=== PATIENT | female | born 1945 | race Hispanic/Latino ===

== ENCOUNTER → 2018-02-24 | Outpatient (CLI) | payer MEDICARE ==
[~2018-02-24] MED LIST: ASPIRIN81 MG PO; CHOLESTEROL MEDICATION; VASOTEC10 MG PO
--- NOTE | 2018-02-24 17:46 | Diagnostic Imaging Report ---
Exam: Finger 3 views History: Pain, contusion Comparison: None. Findings: No fracture or malalignment. Degenerative arthrosis of the first carpometacarpal, metacarpophalangeal, and interphalangeal joint of the thumb. No abnormal soft tissue calcification or soft tissue defect. Impression: No acute osseous abnormality Signed by: Dr. Michael Byrd M.D. on 02/24/2018 5:43 PM
== END ==
LOC: RAD 16:26
PROVIDERS: ATTEND Family Medicine
DX: S60.011A Contusion of right thumb without damage to nail, initial encounter (principal)

== ENCOUNTER → 2018-04-24 | Outpatient (CLI) | payer MEDICARE ==
--- NOTE | 2018-04-24 16:12 | Diagnostic Imaging Report ---
EXAM: Soft tissue non-vascular ultrasound - Left knee COMPARISON: None. TECHNIQUE: Limited ultrasound of the soft tissues of the anterior and posterior knee was performed at the area of clinical concern. FINDINGS: In the area of a soft tissue nodule in the left anterior knee, there is a 1.3 x 0.5 x 0.9 cm hypoechoic area with surrounding doppler flow, superficial to the tibial cortex. In the area of clinical concern, there is soft tissue edema and hyperemia in the posterior knee soft tissues. No discrete Cornejo's cyst is visualized. IMPRESSION: Soft tissue nodule in the left anterior knee corresponding to 1.3 cm hypoechoic area on ultrasound with surrounding vascularity. No discrete fluid collection. This is indeterminate by ultrasound. Given the presence of pain x 8 days, this could represent an inflammatory or infectious process. The appearance is not typical for a lymph node. A follow-up ultrasound is suggested to assess for resolution. Edema and hyperemia in the soft tissues of the posterior knee without evidence of Cornejo's cyst. Signed by: Dr. Edouard Aiken MD on 04/24/2018 4:09 PM
--- NOTE | 2018-04-24 16:29 | Diagnostic Imaging Report ---
Exam: Left knee radiographs, 3 views. Comparison: None. Findings: No evidence of acute fracture or malalignment. There are moderate medial compartment predominant tricompartmental degenerative changes with joint space narrowing and bony osteophyte formation. No evidence of joint effusion. There is quadriceps enthesopathy. 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 No acute osseous abnormality. Signed by: Dr. Edouard Aiken MD on 04/24/2018 4:25 PM
== END ==
LOC: US 15:10
PROVIDERS: ATTEND Family Medicine
DX: M25.562 Pain in left knee (principal)
CPT/HCPCS: 76882

== ENCOUNTER → 2018-05-08 | Outpatient (CLI) | payer MEDICARE ==
--- NOTE | 2018-05-08 14:48 | Diagnostic Imaging Report ---
TECHNIQUE: Magnetic resonance imaging of the LEFT KNEE was performed WITHOUT injected contrast. HISTORY: Left knee pain COMPARISON: None available. FINDINGS: LIGAMENTS AND TENDONS: ACL: Mucoid degeneration. No tear. PCL: Intact Collateral ligaments: Intact Iliotibial band: Unremarkable Popliteal tendon: Intact Extensor mechanism: Intact JOINT: Menisci: Medial: Complex tearing of the body and posterior horn with a dominant radial component to the posterior horn root junction. Meniscal extrusion. Lateral: Intact without tear Articular Cartilage: Medial Compartment: Diffuse high-grade cartilage loss Lateral Compartment: Diffuse low grade cartilage loss Patellofemoral Compartment: Diffuse high-grade cartilage loss Joint Fluid: Moderate joint effusion. BONE: No focal or infiltrative bone marrow replacing abnormality. No acute fracture. SOFT TISSUES: Otherwise, unremarkable. IMPRESSION: Medial meniscus complex tearing with dominant radial component to the posterior horn root junction results in extrusion, high-grade cartilage loss, and subchondral edema at the medial joint line. Signed by: Dr. Michael Byrd M.D. on 05/08/2018 2:45 PM
== END ==
LOC: MRI 13:36
PROVIDERS: ATTEND Family Medicine
DX: M25.562 Pain in left knee (principal)

== ENCOUNTER → 2018-06-25 | Outpatient (CLI) | payer MEDICARE ==
[~2018-06-25] MED LIST changes: +CENTRUM SILVER1 EAC3; +ROSUVASTATIN PO
--- NOTE | 2018-06-25 11:08 | Diagnostic Imaging Report ---
EXAMINATION: PA and lateral views of the chest. COMPARISON: 06/08/2018 CLINICAL HISTORY: Pneumonia follow-up DISCUSSION: Lung volumes remain low. No appreciable interval change in multifocal consolidations involving the right middle lobe and left midlung. No new consolidation or pleural effusion. Stable cardiomediastinal contour. No acute osseous abnormality. Right upper quadrant surgical clips. IMPRESSION: No interval radiographic change in multifocal pneumonia. A follow-up chest radiograph in 6 weeks is suggested, at which point radiographic resolution would be expected. Signed by: Dr. Noah Brumfield M.D. on 06/25/2018 11:04 AM
== END ==
LOC: RAD 10:17
PROVIDERS: ATTEND Family Medicine
DX: Z09 Encounter for follow-up examination after completed treatment for conditions other than malignant neoplasm (principal); J18.9 Pneumonia, unspecified organism
CPT/HCPCS: 71046

== ENCOUNTER → 2018-08-17 | Outpatient (CLI) | payer MEDICARE ==
--- NOTE | 2018-08-17 09:49 | Diagnostic Imaging Report ---
EXAMINATION: CHEST 2 VIEWS INDICATION: Follow-up pneumonia. COMPARISON: Chest radiograph 06/25/2017. FINDINGS: TUBES and LINES: None. LUNGS: Lungs are not well inflated. Persistent consolidative opacity within the right middle lobe. Improving patchy left lower lung opacity. There is linear subsegmental atelectasis in the left upper lung. PLEURA: No pleural effusion or pneumothorax. HEART AND MEDIASTINUM: The cardiomediastinal silhouette is unremarkable. BONES AND SOFT TISSUES: No acute osseous abnormality. UPPER ABDOMEN: No free air under the diaphragm. Status post cholecystectomy. IMPRESSION: Persistent consolidation in the right middle lobe. Given similar appearance to radiograph on 06/08/2018, a chest CT is suggested for further evaluation. Improving opacity in the left lower lung, which may reflect resolving pneumonia. Signed by: Dr. Edouard Aiken MD on 08/17/2018 9:45 AM
== END ==
LOC: RAD 09:11
PROVIDERS: ATTEND Family Medicine
DX: Z09 Encounter for follow-up examination after completed treatment for conditions other than malignant neoplasm (principal); J18.9 Pneumonia, unspecified organism
CPT/HCPCS: 71046

== ENCOUNTER → 2018-08-24 | Outpatient (CLI) | payer MEDICARE ==
[~2018-08-24] MED LIST changes: +IOPAMIDOL 370 MG/ML 200 ML INFUS..BTL INJ ONE; +SODIUM CHLORIDE 0.9% 50ML 50 ML ONE
[2018-08-24 12:40] LABS: BLOOD UREA NITROGEN 13 mg/dL (7-26); BUN/CREATININE RATIO 19 (6-25); CREATININE, SERUM 0.67 mg/dL (0.57-1.11); EST GLOMERULAR FILTRATION RATE > 60 ML/MIN (60-)
--- NOTE | 2018-08-24 15:46 | Diagnostic Imaging Report ---
EXAM: CT Chest WITH contrast INDICATION: Abnormal chest radiograph, history of pneumonia. COMPARISON: None TECHNIQUE: Chest was scanned utilizing a multidetector helical scanner from the lung apex through the level of the adrenal glands after administration of IV contrast. Coronal and sagittal reformations were obtained. Routine protocol was performed. IV CONTRAST: 100 mL of Isovue-370. RADIATION DOSE: Total DLP: 473.2 mGy*cm Estimated effective dose: (DLP x 0.014 x size factor) mSv COMPLICATIONS: None FINDINGS: LINES/ TUBES: None. LUNGS AND AIRWAYS: The central airways are patent. There is consolidative opacity within the right middle lobe. There is linear opacity within the left upper lobe adjacent to calcified left peribronchial lymph nodes. Linear atelectasis versus scarring within the lingula. Mild patchy consolidative opacity within the dependent left upper lobe along the major fissure. There is multifocal groundglass opacity involving the bilateral lower lobes and left greater than right upper lobes. Diffuse opacity limits evaluation for pulmonary nodule. There is a 4 mm subpleural nodular opacity in the right upper lobe on series 3, image 17 and 2 mm subpleural nodule in the left upper lobe on image 16. There is a 4 mm ground glass nodule within the right upper lobe on image 41. PLEURA: The pleural spaces are clear. HEART AND MEDIASTINUM: Heterogeneous thyroid with likely nodule, measuring up to 1.7 cm in the left thyroid lobe. There are enlarged and calcified bilateral mediastinal and hilar lymph nodes. For for example, a right paratracheal calcified lymph node, measuring up to 1.2 cm short axis on series 2, image 37, right peribronchial lymph node, measuring up to 1.5 cm on image 42, and left upper peribronchial lymph node, measuring up to 1.1 cm. Calcified bilateral hilar lymph nodes result in mild extrinsic compression of the bilateral lower lobar pulmonary arteries. Mild cardiomegaly. No pericardial effusion. There is coronary atherosclerosis. Scattered atherosclerotic calcifications within the thoracic aorta and branch vessels. Tortuous great vessels. UPPER ABDOMEN: Limited contrast-enhanced views of the upper abdomen. Status post cholecystectomy. Diffuse mild fatty liver. Small hiatal hernia. BONES/SOFT TISSUES: No acute osseous abnormality. No suspicious lytic or blastic lesions. IMPRESSION: Consolidation within the right middle lobe, consistent with pneumonia. Multifocal groundglass opacities, likely infectious or inflammatory. Suggest follow-up chest CT in 3 months to assess for resolution. Bilateral mediastinal and hilar calcified lymphadenopathy with scarring within the left upper lobe, likely reflecting sequela of prior granulomatous disease. Bilateral solid and groundglass pulmonary nodules as above, measuring up to 4 mm. These can be further assessed on follow-up chest CT. Signed by: Dr. Edouard Aiken MD on 08/24/2018 3:42 PM
== END ==
LOC: CT 11:39
PROVIDERS: ATTEND Family Medicine
DX: R91.8 Other nonspecific abnormal finding of lung field (principal); J18.9 Pneumonia, unspecified organism
CPT/HCPCS: 36415; 71260; 82565; 84520; Q9967

== ENCOUNTER → 2018-09-08 | Day surgery (SDC) | payer MEDICARE ==
[2018-09-03 10:00] LABS: BASOPHILS # (AUTO) 0.1 (0.0-0.1); BASOPHILS % 0.9 % (0.0-1.0); EOSINOPHILS # (AUTO) 0.2 (0.0-0.4); EOSINOPHILS % 3.1 % (0.0-6.0); HEMATOCRIT 39.1 % (34.2-44.1); HEMOGLOBIN 12.8 g/dL (12.0-16.0); LYMPHOCYTES # (AUTO) 1.6 (1.0-3.2); LYMPHOCYTES % 29.4 % (18.0-39.1); MEAN CORPUSCULAR HEMOGLOBIN 29.8 pg (28-32); MEAN CORPUSCULAR HGB CONC 32.7 g/dL (31-35); MEAN CORPUSCULAR VOLUME 91.1 fL (81-99); MONOCYTES # (AUTO) 0.4 (0.2-0.8); MONOCYTES % 7.6 % (4.4-11.3); NEUTROPHILS # (AUTO) 3.2 (2.1-6.9); NEUTROPHILS % 58.5 % (38.7-80.0); PLATELET COUNT 265 x10e3/uL (140-360); RED BLOOD COUNT 4.29 x10e6/uL (3.6-5.1); RED CELL DISTRIBUTION WIDTH 13.4 % (11.7-14.4)
[~2018-09-08] MED LIST changes: +ACETAMINOPHEN 1000 MG/100 ML 100 ML IV ONE; +BUPIVACAINE 0.5%/EPI 30 ML SDV INJ ONE; +CLINDAMYCIN PHOS 900MG/ 50ML 50 ML IV ONE; +DEXAMETHASONE SOD PHOS INJ 4 MG/ML VIAL ONE; +FENTANYL CITRATE/PF 100MCG/2 ML INJ ONE; -IOPAMIDOL 370 MG/ML 200 ML INFUS..BTL INJ ONE; +LIDOCAINE HCL 2% LOCAL INJ 5 ML SDV VIAL INJ ONE; +MIDAZOLAM HCL 2 MG/2 ML VIAL ONE; +MORPHINE SULFATE INJ 4 MG/ML INJ 1ML ONE; +ONDANSETRON HCL INJ 2MG/ML 2ML 2 MG/ML VIAL ONE; +PROPOFOL IV EMULSION 10 MG/ML 20 ML VIAL ONE; +SEVOFLURANE INHAL SOLN 250 ML PEN BTL ONE; -SODIUM CHLORIDE 0.9% 50ML 50 ML ONE
--- OUTSIDE RECORDS SUMMARY | 2018-09-08 10:43 | XMS REPORT | Summary of Care ---
Author Organization Unknown Address Unknown Phone Unavailable Encounter [facility] Encntr_yodit(LV) [id number] Date(s): 10/25/13 - 10/25/13 [facility] - [address] [address] [place] Discharge Disposition: Home Physician Attending: Ney Nowak MD Reason for Visit 786.05 - SHORTNESS OF BR Problem List No data available for this section Allergies, Adverse Reactions, Alerts No data available for this section Medications No data available for this section Medications Administered During Your Visit No data available for this section Immunizations No data available for this section
--- OUTSIDE RECORDS SUMMARY | 2018-09-08 10:43 | XMS REPORT | Summary of Care ---
Author Organization Unknown Address Unknown Phone Unavailable Encounter [facility] En[facility]tr[facility]yodit(LV) [id number] Date(s): 11/15/13 - 11/15/13 [facility] Out[facility] - [address] [address] [place] Discharge Disposition: Home Physician Attending: Malcolm Quintero MD Reason for Visit 793.80 - ABL MAMMOGRAM N Problem List No data available for this section Allergies, Adverse Reactions, Alerts No data available for this section Medications No data available for this section Medications Administered During Your Visit No data available for this section Immunizations No data available for this section
--- OUTSIDE RECORDS SUMMARY | 2018-09-08 10:43 | XMS REPORT | Summary of Care ---
Author Author [facility] - [place] Organization [facility] [place] Address Unknown Phone Unavailable Encounter [facility] Encntr_[id number](FIN) [id number] Date(s): 05/23/15 - 05/23/15 [facility] - [place] [address] [place], [place] [address] [phone] Discharge Disposition: Home Attending Physician: Malcolm Quintero MD Vital Signs No data available for this section Problem List No data available for this section Allergies, Adverse Reactions, Alerts No data available for this section Medications No data available for this section Results No data available for this section Immunizations No data available for this section Procedures No data available for this section Social History No data available for this section Assessment and Plan No data available for this section
--- OUTSIDE RECORDS SUMMARY | 2018-09-08 10:43 | XMS REPORT | Continuity of Care Document ---
Author Author [facility] Interface Address Unknown Phone Unavailable Problems Problem Status Onset Date Classification Date Reported Comments Source Z12.31 - ENCNTR SCREEN MAMMOGRAM FOR MA Active 02/20/2017 [facility] [place] M54.2 - CERVICALGIA Active 05/23/2015 [facility] [place] 793.80 - ABL MAMMOGRAM N Active 03/25/2013 [facility] [place] Medications Medication Details Route Status Patient Instructions Ordering Provider Order Date Source Allergies, Adverse Reactions, Alerts Substance Category Reaction Severity Reaction type Status Date Reported Comments Source Immunizations Immunization Date Given Site Status Last Updated Comments Source Results Order Name Results Value Reference Range Date Interpretation Comments Source Bone Density DXA Dual Energy MA Bone Density DXA Dual Energy MA BONE DENSITY ASSESSMENT: 07/17/2018 CLINICAL DATA: Post menopausal. Postmenopausal . Post Menopausal/Post Menopausal FINDINGS: Bone density evaluation was performed 07/17/2018 on the right femur neck using a Hologic unit. The BMD average for the exam is 0.890 g/cm2. The T-score is 0.40 and the Z-score is 1.90. This matches the World Health Organization's criteria for normal bone density and places the patient within normal limits of fracture risk. An additional bone density evaluation was performed 07/17/2018 on the left femur neck using a Hologic unit. The BMD average for the exam is 0.947 g/cm2. The T- score is 0.90 and the Z-score is 2.40. This matches the World Health Organization's criteria for normal bone density and places the patient within normal limits of fracture risk. An additional bone density evaluation was performed 07/17/2018 on the right hip using a Hologic unit. The BMD average for the exam is 1.033 g/cm2. The T-score is 0.70 and the Z-score is 2.00. This matches the World Health Organization's criteria for normal bone density and places the patient within normal limits of fracture risk. An additional bone density evaluation was performed 07/17/2018 on the left hip using a Hologic unit. The BMD average for the exam is 1.061 g/cm2. The T-score is 1.00 and the Z-score is 2.20. This matches the World Health Organization's criteria for normal bone density and places the patient within normal limits of fracture risk. An additional bone density evaluation was performed 07/17/2018 on the AP L1-L4 region of spine using a Hologic unit. The BMD average for the exam is 1.128 g/cm2. The T-score is 0.70 and the Z-score is 2.90. This matches the World Health Organization's criteria for normal bone density and places the patient within normal limits of fracture risk. IMPRESSION: BONE DENSITY WITHIN NORMAL LIMITS Patient is at normal risk for fracture. This exam was interpreted at [id number] for NONI Campbell. Hugo Duffy M.D. cm/penrad:07/17/2018 14:30:38 Bronze Chaser(s): Perla NEVES(Ivonne)(Cande), [facility] 07/17/2018 - - Read by: Erik Terrazas MD Dictated Date/time: 07/17/18 14:30 Electronically Signed by: Erik Terrazas MD 07/17/18 14:30 FINAL REPORT SHERON Jacobs Breast Mammo Scrn CEFERINO incl CAD JEFFREY Breast Mammo Scrn CEFERINO incl CAD MA BILATERAL DIGITAL SCREENING MAMMOGRAM WITH CAD: 07/17/2018 CLINICAL: Routine/Screening. Current study was evaluated with a Computer Aided Detection (CAD) system. COMPARISON:Comparison is made to exams dated: 02/28/2017 mammogram, 12/21/2014 mammogram, 11/15/2013 mammogram - [facility], 06/14/2013 mammogram - [facility], 04/19/2013 mammogram, and 03/23/2013 mammogram - [facility]. TECHNIQUE: Mammographic views were obtained using digital acquisition. Current study was also evaluated with a Computer Aided Detection (CAD) system. FINDINGS: There are scattered fibroglandular densities in both breasts. Multiple small bilateral oval masses are stable when accounting for differences in technique and positioning. There are benign calcifications in both breasts. No significant masses, calcifications, or other findings are seen in either breast. There has been no significant interval change. IMPRESSION: BENIGN RECOMMENDATION:There is no mammographic evidence of malignancy. A 1 year screening mammogram is recommended.(07/18/2019) This exam was interpreted at [id number] for SHERON Jacobs NONI 15. Professional services are provided by the [facility]. [facility] Division of Diagnostic Imaging. Hugo Duffy M.D. /penrad:07/17/2018 14:49:39 Bronze Chaser(s): Nahomi Alcala RT(R)(M), [facility] letter sent: BI-RADS 1/2 Mammogram BI-RADS: 2 Benign 07/17/2018 - - Read by: Erik Terrazas MD Dictated Date/time: 07/17/18 14:49 Electronically Signed by: Erik Terrazas MD 07/17/18 14:49 FINAL REPORT SHERON Jacobs Breast Mammo Scrn CEFERINO incl CAD MA Breast Mammo Scrn CEFERINO incl CAD MA BILATERAL DIGITAL SCREENING MAMMOGRAM WITH CAD: 02/28/2017 CLINICAL: Routine/Screening. Current study was evaluated with a Computer Aided Detection (CAD) system. COMPARISON:Comparison is made to exams dated: 12/21/2014 mammogram, 11/15/2013 mammogram, and 03/23/2013 mammogram - [facility]. TECHNIQUE: Mammographic views were obtained using digital acquisition. Current study was also evaluated with a Computer Aided Detection (CAD) system. There are scattered fibroglandular densities in both breasts. FINDINGS: There is a benign mass in the left breast. No significant masses, calcifications, or other findings are seen in either breast. There has been no significant interval change. IMPRESSION: BENIGN RECOMMENDATION:There is no mammographic evidence of malignancy. A 1 year screening mammogram is recommended.(03/01/2018) This exam was interpreted at [id number] at [facility] Location. Kristen Mullins M.D. /penrad:03/02/2017 18:07:30 Bronze Chaser(s): Perla Vizcaino RT(R)(M), [facility] letter sent: BI-RADS 1/2 Mammogram BI-RADS: 2 Benign 02/28/2017 - - Read by: Kristen Mullins MD Dictated Date/time: 03/02/17 18:07 Electronically Signed by: Kristen Mullins MD 03/02/17 18:07 FINAL REPORT LEONARDO Jacobs Spine cervical series DX Spine cervical series DX EXAM: Spine cervical series DX HISTORY: - cervical spine pain COMPARISON: 05/23/2015 AP, odontoid, lateral and oblique views of the cervical spine. FINDINGS: AP alignment is normal. There is mild disc space narrowing at C5-C6 and C6-C7. No new abnormality. IMPRESSION: Stable disc space narrowing at C5-C6 and C6-C7. 02/28/2017 - - Read by: Pepe Ross MD Dictated Date/time: 02/28/17 16:42 Electronically Signed by: Pepe Ross MD 02/28/17 16:43 FINAL REPORT SHERON [place] Spine cervical 2 or 3 view DX Spine cervical 2 or 3 view DX CERVICAL SPINE X-RAY, 3 VIEWS History: 69-year-old with cervicalgia. Comparison: None. Findings: No acute fracture or subluxation seen. The cervical curvature is straightened. The C1-C2 lateral masses are aligned. There is no compression fracture, no sclerotic or lytic abnormality seen. The intervertebral spaces C5-C6 and C6-C7 are moderate narrowed suggesting disc disease. Prevertebral soft tissues are unremarkable. The mineralization is normal. IMPRESSION: No acute injury of the cervical spine. 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 05/23/2015 - - Read by: Antonio Wolf MD Dictated Date/time: 05/23/15 09:21 Electronically Signed by: Antonio Wolf 05/23/15 09:23 FINAL REPORT LEONARDO [place] Digital Mammo DX Ceferino MA Digital Mammo DX Ceferino MA - DIGITAL MAMMO DX CEFERINO MA BILATERAL DIGITAL DIAGNOSTIC MAMMOGRAM WITH CAD: 12/21/2014 CLINICAL: 611.72: Follow up for a probably benign focal asymmetry in the left breast. Current study was evaluated with a Computer Aided Detection (CAD) system. Comparison is made to exams dated: 03/23/2013 mammogram, 04/19/2013 mammogram and 04/19/2013 ultrasound - [facility]. There are scattered fibroglandular densities in both breasts. There is a stable focal asymmetry with coarse calcifications in the left breast superior lateral quadrant middle depth. No other significant masses, calcifications, or other findings are seen in either breast. IMPRESSION: PROBABLY BENIGN The stable focal asymmetry in the left breast most likely is a fibroadenoma and is probably benign. A follow-up bilateral diagnostic mammogram and possible left breast ultrasound in 12 months are recommended. SUMMARY: I informed the patient of the results and their significance at the completion of today's examination. Dr. Milad Corrigan M.D. eoc/:12/21/2014 16:41:39 Bronze Chaser: Nahomi Alcala RT(R)(M), [facility] This exam was dictated and interpreted by [id number] for Reynaldo. letter sent: Followup Mammogram BI-RADS: 3 Probably benign 12/21/2014 - - Read by: Milad Corrigan MD Dictated Date/time: 12/21/14 16:41 Electronically Signed by: Milad Corrigan MD 12/21/14 16:41 FINAL REPORT SHERON Jacobs Digital Mammo DX Ceferino MA Digital Mammo DX Ceferino MA - DIGITAL MAMMO DX CEFERINO MA BILATERAL DIGITAL DIAGNOSTIC MAMMOGRAM WITH CAD: 11/15/2013 CLINICAL: Mammographic Abnormality. Current study was evaluated with a Computer Aided Detection (CAD) system. Comparison is made to exams dated: 06/14/2013 ultrasound, 06/14/2013 mammogram - [facility], 04/19/2013 ultrasound, 04/19/2013 mammogram and 03/23/2013 mammogram - [facility]. There are scattered fibroglandular densities in both breasts. There is a stable asymmetry in the left breast superior lateral quadrant posterior depth. The previously described mass within the right breast 1 cm. from the nipple in 2012 is again no longer seen. No other significant masses, calcifications, or other findings are seen in either breast. IMPRESSION: PROBABLY BENIGN The stable asymmetry in the left breast likely represents a degenerating fibroadenoma and is probably benign. A follow-up mammogram in 6 months is recommended to demonstrate stability. Dr. Selvin Méndez M.D. sl/:11/15/2013 12:26:02 Bronze Chaser: Diya Zuluaga RT(R)(M), [facility] This exam was dictated and interpreted by [id number] for [place]. letter sent: Followup Mammogram BI-RADS: 3 Probably benign 11/15/2013 - - Read by: Selvin Méndez MD Dictated Date/time: 11/15/13 12:26 Electronically Signed by: Selvin Méndez MD 11/15/13 12:26 FINAL REPORT SHERON Jacobs Chest 2 views Chest 2 views CHEST RADIOGRAPHY CLINICAL HISTORY: 786.05 Shortness of breath. COMPARISON IMAGING: None. FINDINGS: Two views of the chest were acquired and submitted for evaluation. Right middle lobe airspace disease is noted. The left lung appears clear. Cardiac silhouette and pulmonary vascularity are within normal limits. Bones are unremarkable. IMPRESSION: Right middle lobe infiltrate versus atelectasis. 10/25/2013 - - Read by: Liberty Hood DO Dictated Date/time: 10/25/13 11:51 Electronically Signed by: Liberty Hood DO 10/25/13 11:52 FINAL REPORT SHERON Jacobs US Breast Uni MA US Breast Uni MA - DIGITAL MAMMO DX UNI MA/R - US BREAST UNI MA/R UNILATERAL RIGHT DIGITAL DIAGNOSTIC MAMMOGRAM AND TARGETED RIGHT ULTRASOUND: 06/14/2013 CLINICAL: 611.72: Suspicious right breast mass. Comparison is made to exams dated: 04/19/2013 ultrasound, 04/19/2013 mammogram and 03/23/2013 mammogram - [facility]. Patient presented for ultrasound guided biopsy of right breast. Targed ultrasound of the right breast 9:00 1cm from the nipple does not demonstrate previously noted mass. Diagnostic mammogram performed of the right breast. There are scattered fibroglandular densities in the right breast. Today's diagnostic views also did not demonstrate previously noted focal asymmetry. This was explained in detail to the patient. IMPRESSION: PROBABLY BENIGN, TARGETED ULTRASOUND PROBABLY BENIGN Previously noted mass in the right breast 9:00 1cm from the nipple is no longer demonstrated on today's exam. This may represent resolving hematoma. Biopsy was not performed. A follow-up mammogram and an ultrasound in 6 months is recommended to demonstrate stability, at which time patient will be due for follow up imaging of bilateral breasts. SUMMARY: I notified the patient via an park interpreter of the results and their significance at the completion of today's examination. Dr. Liberty Hood D.O. ht/:06/14/2013 10:40:11 Bronze Chaser: Trish LOPEZ (R)), [facility] This exam was dictated and interpreted by [id number] for Zaheer Arroyo. letter sent: Followup Mammogram BI-RADS: 3 Probably benign Ultrasound BI-RADS: 3 Probably benign 06/14/2013 - - Read by: Liberty Hood Dictated Date/time: 06/14/13 10:40 Electronically Signed by: Liberty Hood , DO 06/14/13 10:40 FINAL REPORT [facility] Digital Mammo DX Uni MA Digital Mammo DX Uni MA - DIGITAL MAMMO DX UNI MA/R - US BREAST UNI MA/R UNILATERAL RIGHT DIGITAL DIAGNOSTIC MAMMOGRAM AND TARGETED RIGHT ULTRASOUND: 06/14/2013 CLINICAL: 611.72: Suspicious right breast mass. Comparison is made to exams dated: 04/19/2013 ultrasound, 04/19/2013 mammogram and 03/23/2013 mammogram - [facility]. Patient presented for ultrasound guided biopsy of right breast. Targed ultrasound of the right breast 9:00 1cm from the nipple does not demonstrate previously noted mass. Diagnostic mammogram performed of the right breast. There are scattered fibroglandular densities in the right breast. Today's diagnostic views also did not demonstrate previously noted focal asymmetry. This was explained in detail to the patient. IMPRESSION: PROBABLY BENIGN, TARGETED ULTRASOUND PROBABLY BENIGN Previously noted mass in the right breast 9:00 1cm from the nipple is no longer demonstrated on today's exam. This may represent resolving hematoma. Biopsy was not performed. A follow-up mammogram and an ultrasound in 6 months is recommended to demonstrate stability, at which time patient will be due for follow up imaging of bilateral breasts. SUMMARY: I notified the patient via an park interpreter of the results and their significance at the completion of today's examination. Dr. Liberty Hood D.O. ht/:06/14/2013 10:40:11 Bronze Chaser: Trish NEVES (R)(Cande), [facility] This exam was dictated and interpreted by [id number] for SHERON Arroyo. letter sent: Followup Mammogram BI-RADS: 3 Probably benign Ultrasound BI-RADS: 3 Probably benign 06/14/2013 - - Read by: Liberty Hood Dictated Date/time: 06/14/13 10:40 Electronically Signed by: Liberty Hood , DO 06/14/13 10:40 FINAL REPORT [facility] Vital Signs Vital Sign Value Date Comments Source Encounters Location Location Details Encounter Type Encounter Number Reason For Visit Attending Provider ADM Date DC Date Status Source OD [id number] 793.80 - ABL MAMMOGRAM N NAT HERR MARCELO 04/19/2013 Active [facility] [place] [facility] [place] [facility] [id number] Ney Nowak 10/25/2013 10/26/2013 MH [facility] [place] [facility] [place] [facility] [id number] [facility] 11/15/2013 11/16/2013 MH [facility] [place] [facility] [place] [facility] [id number] [facility] 12/21/2014 12/22/2014 MH [facility] [place] [facility] [place] [facility] [id number] [facility] 05/23/2015 05/24/2015 MH [facility] [place] [facility] [place] [facility] [id number] [facility] 02/28/2017 03/01/2017 MH [facility] [place] [facility] [place] [facility] [id number] [facility] 07/17/2018 07/18/2018 MH [facility] [place] Procedures Procedure Code Date Perfomer Comments Source
--- OUTSIDE RECORDS SUMMARY | 2018-09-08 10:43 | XMS REPORT | Summary of Care ---
Author Author [facility] [place] Organization [facility] [place] Address Unknown Phone Unavailable Encounter HQ Encntr_alias(FIN) [id number] Date(s): 07/17/18 - 07/17/18 [facility] [place] [address] [place] [address]- 7 [phone] Discharge Disposition: Home or Self Care Attending Physician: Malcolm Quintero MD Referring Physician: Malcolm Quintero MD Vital Signs No [...]
--- OUTSIDE RECORDS SUMMARY | 2018-09-08 10:43 | XMS REPORT | Summary of Care ---
Author Author [facility] [place] Organization [facility] [place] Address Unknown Phone Unavailable Encounter HQ Encntr_alipanfilo(FIN) [id number] Date(s): 12/21/14 - 12/21/14 [facility] [place] [address] [place], [place] [address] [phone] Discharge Disposition: Home Attending Physician: Malcolm Quintero [...]
[2018-09-08 14:35] VITALS: BP 147/79
--- NOTE | 2018-09-14 01:12 | Operative Report ---
DATE OF PROCEDURE: 09/08/2018 SURGEON: Dada Luo MD PREOPERATIVE DIAGNOSES: Left knee medial meniscus tear, left knee degenerative joint disease of the knee. POSTOPERATIVE DIAGNOSES: Left knee medial meniscus tear, left knee lateral meniscus tear, left knee degenerative joint disease in the knee. OPERATIONS AND PROCEDURE PERFORMED: The patient underwent a left knee exam under anesthesia, left knee arthroscopy, left knee partial medial meniscectomy, left knee partial lateral meniscectomy, left knee chondroplasty of patella, trochlea, medial femoral condyle and medial tibial plateau lateral femoral condyle and lateral tibial plateau. PRESS OPERATOR: Maria Luisa Pineda. ANESTHESIA: General endotracheal intubation anesthesia. IV FLUIDS: Per anesthesia record. BRIEF DISCUSSION OF THE PATIENT'S OPERATIVE PROCEDURE: Ms. Brenner was taken to the operating room, placed in the supine position on the operating table. Upon induction of general anesthesia as well as endotracheal intubation, the patient's left lower extremity examined under anesthesia. She was also found to have a mild effusion with the knee joint, but otherwise ligamentously stable knee. The patient's lower extremities prepped and draped in standard surgical fashion. A two-port technique was used to provide this patient arthroscopic evaluation of the knee joint. Examination of suprapatellar pouch and medial lateral gutters found no evidence of loose bodies. There was, however, evidence of chondromalacia of the patella and trochlear surfaces. The scope was advanced in the medial compartment. Examination of the medical compartment demonstrated a tear of the posterior horn and root of the medial meniscus. There was chondromalacia of the articulating surfaces. A combination of biting forceps and a motorized shaver was used to resect this torn portion of the meniscus. Chondroplasties of the medial femoral condyle and medial tibial plateau performed at this time. The scope was then advanced to the intercondylar notch and the anterior cruciate ligament was identified and found to be intact. The scope was advanced to the lateral compartment. Examination of the lateral compartment demonstrated a tear of the lateral meniscus anterior horn. There was also chondromalacia articulating surfaces. A combination of biting forceps and motorized shaver were used to resect this torn portion of the meniscus. Chondroplasties The knee was deflated with sterile normal saline. The portal sites were closed using 4-0 nylon suture. The portal sites as well as the knee itself were injected with 0.5% Marcaine with epinephrine. Sterile dressings were applied. The patient was awakened and taken to Postanesthesia Care Unit in stable condition. MD ERASMO Roblero/OMAR /[id number]
== END | disposition home or self-care (01) ==
LOC: OR 10:38
PROVIDERS: ATTEND Specialist
DX: S83.242A Other tear of medial meniscus, current injury, left knee, initial encounter (principal); S83.282A Other tear of lateral meniscus, current injury, left knee, initial encounter; M17.12 Unilateral primary osteoarthritis, left knee; M22.42 Chondromalacia patellae, left knee; J45.909 Unspecified asthma, uncomplicated; R03.0 Elevated blood-pressure reading, without diagnosis of hypertension; G47.30 Sleep apnea, unspecified; A31.9 Mycobacterial infection, unspecified; Z88.0 Allergy status to penicillin; X58.XXXA Exposure to other specified factors, initial encounter; Z01.810 Encounter for preprocedural cardiovascular examination; Z01.812 Encounter for preprocedural laboratory examination
CPT/HCPCS: 29880; 36415; 85025; 93005; J0131; J1100; J2001; J2250; J2270; J2405; J2704

== ENCOUNTER 2018-10-15 10:54 | Outpatient (RCR) | payer MEDICARE ==
[~2018-10-15 10:54] MED LIST changes: -ACETAMINOPHEN 1000 MG/100 ML 100 ML IV ONE; -BUPIVACAINE 0.5%/EPI 30 ML SDV INJ ONE; -CLINDAMYCIN PHOS 900MG/ 50ML 50 ML IV ONE; -DEXAMETHASONE SOD PHOS INJ 4 MG/ML VIAL ONE; -FENTANYL CITRATE/PF 100MCG/2 ML INJ ONE; -LIDOCAINE HCL 2% LOCAL INJ 5 ML SDV VIAL INJ ONE; -MIDAZOLAM HCL 2 MG/2 ML VIAL ONE; -MORPHINE SULFATE INJ 4 MG/ML INJ 1ML ONE; -ONDANSETRON HCL INJ 2MG/ML 2ML 2 MG/ML VIAL ONE; -PROPOFOL IV EMULSION 10 MG/ML 20 ML VIAL ONE; -SEVOFLURANE INHAL SOLN 250 ML PEN BTL ONE
== END 2018-10-16 ==
LOC: PT 10:54
PROVIDERS: ATTEND Specialist
DX: M17.12 Unilateral primary osteoarthritis, left knee (principal); M25.562 Pain in left knee; M25.462 Effusion, left knee; M62.81 Muscle weakness (generalized); M25.662 Stiffness of left knee, not elsewhere classified

== ENCOUNTER 2018-10-22 11:21 | Emergency (ER) | payer MEDICARE ==
[~2018-10-22] VITALS: Ht 157.5 cm; Wt 83.9 kg
--- OUTSIDE RECORDS SUMMARY | 2018-10-22 11:24 | XMS REPORT ---
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 Allergies, Adverse Reactions, Alerts Allergy Name Allergy Type Status Severity Reaction(s) Onset Date Inactive Date Treating Clinician Comments Penicillins DA Active U 2014-02-05 00:00:00 Medications This patient has no known medications. Results Test Description Test Time Test Comments Text Results Atomic Results Result Comments LUNG 2018-10-21 16:51:00 RUN DATE: 10/21/18 AXS-One PAGE 1 RUN TIME: 1651 Specimen Inquiry RUN USER: INTERFACE PATIENT: MENDEL BRIDGES LOC: [facility] U #: [id number] AGE/SX: 73/F ROOM: RE10/19/18REG DR: Lev Vera MD : 49 BED: DIS: STATUS: [facility] TLOC: SPEC #: [id number] RECD: 10/19/18-1128 STATUS: [facility] #: [id number] PATTI: 10/19/18- [facility] DR: Lve Vera MD ENTERED: 10/19/18 SP TYPE: LUNG OTHR DR: Noel Quintero MD ORDERED: GROSS COPIES TO: Lev Vera MD [address] [place], [place] [id number] Noel Quintero MD [address] [place], [place] [address] PROCEDURES: GROSS (10/21/18-7335) TISSUES: LUNG, NOS - RIGHT MIDDLE LOBE BX CLINICAL HISTORY COLLECTION DATE: 10/19/18 RIGHT MIDDLE LOBE FINAL DIAGNOSIS Lung, right middle lobe, biopsy: MINIMAL CHRONIC INFLAMMATION IN BRONCHIAL MUCOSA NO ACUTE INFLAMMATORY INFILTRATE PRESENT NO ALVEOLAR LUNG PARENCHYMA PRESENT NEGATIVE FOR MALIGNANCY MULTIPLE LEVELS EXAMINED RRB/hi D 15128 MACROSCOPIC The specimen is received in formalin, labeled with the patient's name, identified as "right middle lobe bx". The specimen consists of minute portions of martel tissue measuring less than 0.1 to 0.1 cm. The specimen is filtered in biopsy bag and entirely submitted in a single cassette. CONTINUED ON NEXT PAGE RUN DATE: 10/21/18 QulinTheraVida PAGE 2 RUN TIME: 1651 Specimen Inquiry RUN USER: INTERFACE SPEC #: [id number] PATIENT: MENDEL BRIDGES #[id number] (Continued) MACROSCOPIC (Continued) GROSS PERFORMED AT [facility] [address] [place] [address], [place] [address] [phone] MICROSCOPIC All of the stains, including any controls performed, stain appropriately. MICROSCOPIC PERFORMED AT [facility] [address] [place] [address] [phone] PERFORMING SITE Diagnosis performed at: [facility], [place] [address] [facility], [place] [address] Signed SIGNATURE ON FILE Jay Avelar MD 10/21/18 1651 END OF REPORT - XR CHEST 1 V 2018-10-19 09:14:00 FAX: Lev Parker MD [phone] [place]: [facility]: [facility] FAX: Noel Alvarado MD [phone] Name: MENDEL BRIDGES [facility] : 1945 Age/S: 73/F [address] [facility] Unit #: [id number] Loc: [place] [address] Phys: Lev Vera MD Acct: [id number] Dis Date: Status: [facility] PHONE #: [phone] Exam Date: 10/19/2018 0900 FAX #: [phone] Reason: POST BRONCHOSCOPY EXAMS: CPT CODE: [id number] XR CHEST 1 V 20114 HISTORY: Post bronchoscopy. COMPARISON: September 30, 2018. Single view chest: Patchy right basal infiltrate with subsegmental atelectasis. Dependent changes on the left. No pneumothorax. Scar in the right upper lobe noted again. Cardiomegaly IMPRESSION: No pneumothorax after bronchoscopic evaluation. Patchy right lower lobe infiltrate. at 0914 Reported and signed by: Craig Stokes M.D. CC: Lev Vera MD; Noel Quintero MD Technologist: Salvador Mcmullen RT(R) Trnscrd Date/Time/By: 10/19/2018 (913) : By: [email or web address] Orig Print D/T: S: 10/19/2018 (916) PAGE 1 Signed Report BASIC METABOLIC PANEL 2018-10-16 13:03:00 SODIUM (test code=NA) 140 mmol/L 136-145 POTASSIUM (test code=K) 4.3 mmol/L 3.5-5.1 CHLORIDE (test code=CL) 107.0 mmol/L 98-107 CARBON DIOXIDE (test code=CO2) 29.0 mmol/L 21-32 ANION GAP (test code=GAP) 8.3 10-20 GLUCOSE (test code=GLU) 85 mg/dL 74-106 BLOOD UREA NITROGEN (test code=BUN) 15 mg/dL 7-18 GLOMERULAR FILTRATION RATE (test code=GFR) > 60 mL/min >=60 Estimated GFR by using Modified MDRD formula.Chronic kidney disease is defined as either kidney damageor GFR <60 mL/min/1.73 m2 for >3 months. CREATININE (test code=CREAT) 0.50 mg/dL 0.55-1.02 Note change in reference range due to change in reagent. BUN/CREATININE RATIO (test code=BUN/CREA) 30.0 10-20 CALCIUM (test code=CA) 9.4 mg/dL 8.5-10.1 BASIC METABOLIC [id number] 12:58:00* Test Item Value Reference Range Comments SODIUM (test code=NA) 140 mmol/L 136-145 POTASSIUM (test code=K) 4.3 mmol/L 3.5-5.1 CHLORIDE (test code=CL) 107.0 mmol/L 98-107 CARBON DIOXIDE (test code=CO2) mmol/L 21-32 ANION GAP (test code=GAP) 10-20 GLUCOSE (test code=GLU) mg/dL 74-106 BLOOD UREA NITROGEN (test code=BUN) mg/dL 7-18 GLOMERULAR FILTRATION RATE (test code=GFR) mL/min >=60 CREATININE (test code=CREAT) mg/dL 0.55-1.02 BUN/CREATININE RATIO (test code=BUN/CREA) 10-20 CALCIUM (test code=CA) mg/dL 8.5-10.1 CBC W/AUTO [id number] 12:43:00* Test Item Value Reference Range Comments WHITE BLOOD CELL (test code=WBC) 6.0 K/mm3 4.5-12.5 RED BLOOD CELL (test code=RBC) 4.58 mill/mm3 3.7-5.2 HEMOGLOBIN (test code=HGB) 13.3 gram/dL 11.5-15.5 HEMATOCRIT (test code=HCT) 42.1 % 36.0-46.0 MEAN CELL VOLUME (test code=MCV) 91.9 fL 80-98 MEAN CELL HGB (test code=MCH) 29.0 picogram 27.0-33.0 MEAN CELL HGB CONCETRATION (test code=MCHC) 31.6 gram/dL 33.0-36.0 RED CELL DISTRIBUTION WIDTH (test code=RDW) 13.3 % 11.6-16.2 RED CELL DISTRIBUTION WIDTH SD (test code=RDW-SD) 44.6 fL 37.0-51.0 PLATELET COUNT (test code=PLT) 262 K/mm3 150-450 MEAN PLATELET VOLUME (test code=MPV) 10.0 fL 6.7-11.0 NEUTROPHIL % (test code=NT%) 58.9 % 39.0-69.0 IMMATURE GRANULOCYTE % (test code=IG%) 0.5 % 0.0-5.0 LYMPHOCYTE % (test code=LY%) 29.4 % 25.0-55.0 MONOCYTE % (test code=MO%) 8.0 % 0.0-10.0 EOSINOPHIL % (test code=EO%) 2.5 % 0.0-5.0 BASOPHIL % (test code=BA%) 0.7 % 0.0-1.0 NUCLEATED RBC % (test code=NRBC%) 0.0 % 0-0 NEUTROPHIL # (test code=NT#) 3.56 K/mm3 1.8-7.7 IMMATURE GRANULOCYTE # (test code=IG#) 0.03 x10 3/uL 0-0.03 LYMPHOCYTE # (test code=LY#) 1.77 K/mm3 1.0-5.0 MONOCYTE # (test code=MO#) 0.48 K/mm3 0-0.8 EOSINOPHIL # (test code=EO#) 0.15 K/mm3 0.0-0.5 BASOPHIL # (test code=BA#) 0.04 K/mm3 0.0-0.2 NUCLEATED RBC # (test code=NRBC#) 0.00 K/mm3 0.0-0.1 MANUAL DIFF REQUIRED (test code=MDIFF) NO - XR CHEST 1 [id number] 12:01:00 Name: MENDEL BRIDGES [facility] : 1945 Age/S:72 /F [address] [facility] Unit#:[id number] Loc: [place] [address] Phys: Earlene Ivan MD Dis Date: PHONE #: [phone] Status: REG ER FAX #: [phone] Exam Date: 09/30/2018 Reason: chest pain EXAMS: CPT CODE: [id number] XR CHEST 1 V 57158 TECHNIQUE - XR CHEST 1 V . COMPARISON: Chest x-ray 05/11/2016 HISTORY: 72 years Female chest pain FINDINGS: Right midlung field and right lower lung field atelectasis versus infiltrates. Left hilar/left suprahilar atelectasis versus infiltrates. Follow-up advised. No pneumothorax. Cardiac silhouette is prominent. No congestion. IMPRESSION: Right midlung field and right lower lung field atelectasis versus infiltrates. Left hilar/left suprahilar atelectasis versus infiltrates. Follow-up advised. at 1201 Reported and signed by: Gaston Alaniz M.D. CC: Earlene Ivan MD; Noel Quintero MD Technologist: Vince Anthony RT(R)(CT) Trnscrpt Data: 09/30/2018 (1201) Afshan Arndt Print D/T: S: 09/30/2018 (9447) PAGE [address] CHEST W 2018-08-24 15:16:00 [place] [address] Patient Name: MENDEL BRIDGES MR #: [id number] : 1945 Age/Sex: 72/F Req #: [id number] Adm Physician: Ordered by: NOEL QUINTERO MD, MD Report #: [id number] Location: CT Room/Bed: Procedure: 0408 -0016 CT/CT CHEST W Exam Date: 08/24/18 Exam Time: 1 300 REPORT STATUS: Signed EXAM: CT Chest WITH contrast INDICATION: Abnormal chest radiograph, history of p neumonia. COMPARISON: None TECHNIQUE: Chest was scanned utilizing a multidetector helical scanner from the lung apex through the level of the adr enal glands after administration of IV contrast. Coronal and sagittal reformat ions were obtained. Routine protocol was performed. IV CONTRAST: 100 mL of Isovue-370. RADIATION DOSE: Total DLP: 473.2 mGy*cm Estimated effective dose: (DLP x 0.014 x size factor) mSv COMPLICATIONS: None FINDINGS: LINES/ TUBES: None. LUNGS AND AIRWA YS: The central airways are patent. There is consolidative opacity within the right middle lobe. There is linear opacity within the left upper lobe adjacent to calcified left peribronchial lymph nodes. Linear atelectasis versus scarri ng within the lingula. Mild patchy consolidative opacity within the dependent left upper lobe along the major fissure. There is multifocal groundglass opaci ty involving the bilateral lower lobes and left greater than right upper lobes . Diffuse opacity limits evaluation for pulmonary nodule. There is a 4 mm subp leural nodular opacity in the right upper lobe on series 3, image 17 and 2 mm subpleural nodule in the left upper lobe on image 16. There is a 4 mm ground g lass nodule within the right upper lobe on image 41. PLEURA: The pleural spaces are clear. HEART AND MEDIASTINUM: Heterogeneous thyroid with likely nodule, measuring up to 1.7 cm in the left thyroid lobe. There are enlarged an d calcified bilateral mediastinal and hilar lymph nodes. For for example, a ri ght paratracheal calcified lymph node, measuring up to 1.2 cm short axis on se evens 2, image 37, right peribronchial lymph node, measuring up to 1.5 cm on im age 44, and left upper peribronchial lymph node, measuring up to 1.1 cm. Calci fied bilateral hilar lymph nodes result in mild extrinsic compression of the b ilateral lower lobar pulmonary arteries. Mild cardiomegaly. No pericardi al effusion. There is coronary atherosclerosis. Scattered atherosclerotic calc ifications within the thoracic aorta and branch vessels. Tortuous great vessel s. UPPER ABDOMEN: Limited contrast-enhanced views of the upper abdomen. St atus post cholecystectomy. Diffuse mild fatty liver. Small hiatal hernia. BONES/SOFT TISSUES: No acute osseous abnormality. No suspicious lytic or chip tic lesions. IMPRESSION: Consolidation within the right middle lobe, con sistent with pneumonia. Multifocal groundglass opacities, likely infectious or inflammatory. Suggest follow-up chest CT in 3 months to assess for resolution. Bilateral mediastinal and hilar calcified lymphadenopathy with scarring w ithin the left upper lobe, likely reflecting sequela of prior granulomatous di sease. Bilateral solid and groundglass pulmonary nodules as above, measurin g up to 4 mm. These can be further assessed on follow-up chest CT. Signed by: Dr. Amanda Lane MD on 08/24/2018 3:42 PM Dictated By: AMANDA LANE MD E lectronically Signed By: AMANDA LANE MD on 08/24/18 1542 Transcribed By: NYASIA on 08/24/18 1542 COPY TO: NOEL QUINTERO CHEST 2 [id number] 09:41:00 [place] [address] Patient Name: MENDEL BRIDGES MR #: [id number] : 1945 Age/Sex: 72/F Req #: [id number] Adm Physician: Ordered by: DAVON CÁRDENAS, NOEL Sanchez MD Report #: [id number] Location: RAD Room/Bed: Procedure: 0401 -0019 DX/CHEST 2 VIEWS Exam Date: 08/17/18 Exam Time : 909 REPORT STATUS: Signed EXA MINATION: CHEST 2 VIEWS INDICATION: Follow-up pneumonia. COMPARI SON: Chest radiograph 06/25/2017. FINDINGS: TUBES and LINES: None. LUNGS: Lungs are not well inflated. Persistent consolidative opacity with in the right middle lobe. Improving patchy left lower lung opacity. There is linear subsegmental atelectasis in the left upper lung. PLEURA: No pleural effusion or pneumothorax. HEART AND MEDIASTINUM: The cardiomediastinal s ilhouette is unremarkable. BONES AND SOFT TISSUES: No acute osseous ab normality. UPPER ABDOMEN: No free air under the diaphragm. Status post chol ecystectomy. IMPRESSION: Persistent consolidation in the right middle l obe. Given similar appearance to radiograph on 06/08/2018, a chest CT is sugges anabel for further evaluation. Improving opacity in the left lower lung, which may reflect resolving pneumonia. Signed by: Dr. Amanda Lane MD on 08/18/19 9:45 AM Dictated By: AMANDA LANE MD 4 Transcribed By: NYASIA on 08/17/18944 COPY TO: NOEL QUINTERO CHEST 2 [id number] 11:02:00 [place] [address] Patient Name: MENDEL BRIDGES MR #: [id number] : 1945 Age/Sex: 72/F Req #: [id number] Adm Physician: Ordered by: NOEL QUINTERO MD, MD Report #: [id number] Location: RAD Room/Bed: Procedure: 0207 -0024 DX/CHEST 2 VIEWS Exam Date: 06/25/18 Exam Time : 1030 REPORT STATUS: Signed EXAMINATION: PA and lateral views of the chest. COMPARISON: 06/08/2018 CLINICAL HISTORY: Pneumonia follow-up DISCUSSION: Lung volumes r emain low. No appreciable interval change in multifocal consolidations involvi ng the right middle lobe and left midlung. No new consolidation or pleural eff usion. Stable cardiomediastinal contour. No acute osseous abnormality. Right u pper quadrant surgical clips. IMPRESSION: No interval radiographic sage e in multifocal pneumonia. A follow-up chest radiograph in 6 weeks is suggeste d, at which point radiographic resolution would be expected. Signed by: Dr. Tammie Brumfield M.D. on 06/25/2018 11:04 AM Dictated By: TIGIST BRUMFIELD MD 1104 Trans cribed By: NYASIA on 06/25/18 1104 COPY TO: NOEL QUINTERO CHEST 2 [id number] 10:47:00 [place] [address] Patient Name: MENDEL BRIDGES MR #: [id number] : 1945 Age/Sex: 72/F Req #: [id number] Adm Physician: Ordered by: RASHMI BOOTHE MD Report #: [id number] Location: OR Room/Bed: Procedure: 012-00 20 DX/CHEST 2 VIEWS Exam Date: 06/08/18 Exam Time: 1 030 REPORT STATUS: Signed EXAMIN ATION: CHEST 2 VIEWS INDICATION: PREOP PROTOCOL. Left knee media l meniscal injury. COMPARISON: None FINDINGS: PA and lateral vi ews TUBES and LINES: None. LUNGS: Lungs are not well inflated. Righ t middle lobe consolidation. Left lower lobe versus lingular consolidation. Th ere is no evidence of pneumonia or pulmonary edema. PLEURA: No pleural e ffusion or pneumothorax. HEART AND MEDIASTINUM: The cardiomediastinal silh ouette is unremarkable. BONES AND SOFT TISSUES: No acute osseous lesio n. Soft tissues are unremarkable. UPPER ABDOMEN: No free air under the d iaphragm. There are cholecystectomy clips. IMPRESSION: 1. Right middl e lobe pneumonia. 2. Left lower lobe versus lingular pneumonia. Mari d by: Dr. Beto Bateman M.D. on 06/08/2018 10:48 AM Dictated By: BETO BATEMAN MD El ectronically Signed By: BETO BATEMAN MD on 06/08/18 1048 Transcribed By: NYASIA on 06/08/18 1048 COPY TO: RASHMI BOOTHE MD MRI KNEE LEFT WO 2018-05-08 14:43:00 [place] [address] Patient Name: MENDEL BRIDGES MR #: [id number] : 1945 Age/Sex: 72/F Req #: [id number] Adm Physician: Ordered by: DAVON CÁRDENAS, NOEL Sanchez MD Report #: [id number] Location: MRI Room/Bed: Procedure: 1221 -0004 MRI/MRI KNEE LEFT WO Exam Date: 05/08/18 Exam Time: 1402 REPORT STATUS: Signed TECHNIQUE: Magnetic resonance imaging of the LEFT KNEE was performed WITHOUT injected contrast. HISTORY: Left knee pain COMPARISON: None availabl e. FINDINGS: LIGAMENTS AND TENDONS: ACL: Mucoid degeneration. No tear. PCL: Intact Collateral ligaments: Intact Iliotibial band: Unremarkable Popliteal tendon: Intact Extensor mechanism: Intact JOINT: Menisci: Medial: Complex tearing of the body and posterior horn with a dominant radial component to the posterior horn root junction. Meniscal extrusion. Lateral: Intact without tear Articular Cartilage: Medial Compartment: Diffuse high-grade cartilage loss Lateral Compartment: Diffuse low grade cartilage loss Patellofemoral Compartment: Diffuse high-grade cartilage loss Joint Fluid: Moderate joint effusion. BONE: No focal or in filtrative bone marrow replacing abnormality. No acute fracture. SOFT T ISSUES: Otherwise, unremarkable. IMPRESSION: Medial meniscus com plex tearing with dominant radial component to the posterior horn root junctio n results in extrusion, high-grade cartilage loss, and subchondral edema at th e medial joint line. Signed by: Dr. Argentina Rojas M.D. on 05/08/2018 2:45 PM Dictated By: ARGENTINA ROJAS MD 1445 Transcribed By: NYASIA on 05/08/18 1445 COPY TO: NOEL QUINTERO KNEE LEFT THREE [id number] 16:23:00 [place] [address] Patient Name: MENDEL BRIDGES MR #: [id number] : 1945 Age/Sex: 72/F Req #: [id number] Adm Physician: Ordered by: NOEL QUINTERO MD, MD Report #: [id number] Location: Room/Bed: Procedure: 1207 -0068 DX/KNEE LEFT THREE VIEWS Exam Date: 04/24/18 E xam Time: 1609 REPORT STATUS: Mrai d Exam: Left knee radiographs, 3 views. Comparison: None. Findi ngs: No evidence of acute fracture or malalignment. There are moderate medial compartment predominant tricompartmental degenerative changes with joint space narrowing and bony osteophyte formation. No evidence of joint effusion. There is quadriceps enthesopathy. 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 No acute osseous abnormality. Signed by: Dr. Amanda Lane MD on 04/24/2018 4:25 PM Dictated By: AMANDA LANE MD 24 Transcribed B y: NYASIA on 04/24/181624 COPY TO: NOEL QUINTERO US EXTREMITY COHEN [id number] 16:00:00 [place] [address] Patient Name: MENDEL BRIDGES MR #: [id number] : 1945 Age/Sex: 72/F Req #: [id number] Adm Physician: Ordered by: NOEL QUINTERO MD, MD Report #: [id number] Location: US Room/Bed: Procedure: 1207 -0014 US/US EXTREMITY COHEN NON-VAS Exam Date: Exam T sammy: REPORT STATUS: Signed EXAM : Soft tissue non-vascular ultrasound - Left knee COMPARISON: None. TECHNIQUE: Limited ultrasound of the soft tissues of the anterior and posterior knee was performed at the area of clinical concern. FINDINGS: In t he area of a soft tissue nodule in the left anterior knee, there is a 1.3 x 0. 5 x 0.9 cm hypoechoic area with surrounding doppler flow, superficial to the t ibial cortex. In the area of clinical concern, there is soft tissue edema and hyperemia in the posterior knee soft tissues. No discrete Cornejo's cyst is visualized. IMPRESSION: Soft tissue nodule in the left anterior knee cor responding to 1.3 cm hypoechoic area on ultrasound with surrounding vascularit y. No discrete fluid collection. This is indeterminate by ultrasound. Given th e presence of pain x 8 days, this could represent an inflammatory or infectiou s process. The appearance is not typical for a lymph node. A follow-up ultraso und is suggested to assess for resolution. Edema and hyperemia in the so ft tissues of the posterior knee without evidence of Cornejo's cyst. Mari d by: Dr. Amanda Lane MD on 04/24/2018 4:09 PM Dictated By: AMANDA LANE MD 1609 Transcribed By: GARCIA VILLASENOR on 04/24/18 1609 COPY TO: NOEL QUINTERO FINGER RIGHT 2018-02-24 17:42:00 [place] [address] Patient Name: MENDEL BRIDGES MR #: [id number] : 1945 Age/Sex: 72/F Req #: [id number] Adm Physician: Ordered by: NOEL QUINTERO MD, MD Report #: [id number] Location: [facility] Room/Bed: Procedure: [id number] DX/FINGER RIGHT Exa m Date: 02/24/18 Exam Time: 1630 REPORT STATUS: Signed Exam: Finger 3 views History: Pain, contusion Comparis on: None. Findings: No fracture or malalignment. Degenerative arthrosis of the first carpometacarpal, metacarpophalangeal, and interphalangeal joint of t he thumb. No abnormal soft tissue calcification or soft tissue defect. Impression: No acute osseous abnormality Signed by: Dr. Argentina stephens M.D. on 02/24/2018 5:43 PM Dictated By: ARGENTINA ROJAS MD [facility] ically Signed By: ARGENTINA ROJAS MD on 02/24/18 174 Transcribed By: NYASIA on 02/24/181742 COPY TO: NOEL QUINTERO
[2018-10-22] MEDS ORDERED: ASPIRIN 81 MG CHEW TAB PO ONE (11:45)
[2018-10-22 12:09] LABS: BASOPHILS % 0.4 % (0.0-1.0); EOSINOPHILS # (AUTO) 0.2 (0.0-0.4); EOSINOPHILS % 2.4 % (0.0-6.0); HEMATOCRIT 40.6 % (34.2-44.1); HEMOGLOBIN 13.5 g/dL (12.0-16.0); LYMPHOCYTES % 25.4 % (18.0-39.1); MEAN CORPUSCULAR HEMOGLOBIN 29.8 pg (28-32); MEAN CORPUSCULAR HGB CONC 33.3 g/dL (31-35); MEAN CORPUSCULAR VOLUME 89.6 fL (81-99); MONOCYTES # (AUTO) 0.7 (0.2-0.8); MONOCYTES % 8.3 % (4.4-11.3); NEUTROPHILS # (AUTO) 4.9 (2.1-6.9); NEUTROPHILS % 63.1 % (38.7-80.0); PLATELET COUNT 268 x10e3/uL (140-360); RED BLOOD COUNT 4.53 x10e6/uL (3.6-5.1); RED CELL DISTRIBUTION WIDTH 13.2 % (11.7-14.4)
[2018-10-22 12:11] LABS: BILIRUBIN,URINE NEGATIVE (NEGATIVE); CLARITY,URINE CLEAR (CLEAR); COLOR,URINE YELLOW (YELLOW); KETONES,URINE NEGATIVE (NEGATIVE); LEUKOCYTE ESTERASE ,URINE TRACE (NEGATIVE); NITRITE,URINE NEGATIVE (NEGATIVE); PROTEIN,URINE DIPSTICK NEGATIVE (NEGATIVE); URINE UROBILINOGEN 0.2 mg/dL (0.2 - 1)
[2018-10-22 12:14] LABS: INR 0.81; PROTHROMBIN TIME 11.7 seconds (11.9-14.5)
[2018-10-22 12:15] LABS: PARTIAL THROMBOPLASTIN TIME 28.3 seconds (23.8-35.5)
[2018-10-22 12:22] LABS: ALANINE AMINOTRANSFERASE 19 IU/L (0-55); ALBUMIN 4.2 g/dL (3.5-5.0); ALBUMIN/GLOBULIN RATIO 1.1 (0.8-2.0); ALKALINE PHOSPHATASE 91 IU/L (40-150); ANION GAP 11.8 mmol/L (8-16); BLOOD UREA NITROGEN 11 mg/dL (7-26); BUN/CREATININE RATIO 15 (6-25); CALCIUM 9.7 mg/dL (8.4-10.2); CARBON DIOXIDE 28 mmol/L (22-29); CHLORIDE 103 mmol/L (98-107); CREATINE KINASE 118 IU/L (29-168); CREATININE, SERUM 0.71 mg/dL (0.57-1.11); EST GLOMERULAR FILTRATION RATE > 60 ML/MIN (60-); GLUCOSE 89 mg/dL (74-118); POTASSIUM 3.8 mmol/L (3.5-5.1); SODIUM 139 mmol/L (136-145)
--- NOTE | 2018-10-22 12:26 | Diagnostic Imaging Report ---
EXAMINATION: CHEST 2 VIEWS INDICATION: Chest pain, shortness of breath. COMPARISON: Chest radiograph 08/17/[address] chest with contrast 08/24/2018. FINDINGS: TUBES and LINES: None. LUNGS: Moderate lung volumes. There is patchy consolidation within the right lung base. Linear subsegmental atelectasis in the left midlung. PLEURA: No pleural effusion or pneumothorax. HEART AND MEDIASTINUM: The cardiomediastinal silhouette is unremarkable. BONES AND SOFT TISSUES: No acute osseous abnormality. UPPER ABDOMEN: No free air under the diaphragm. IMPRESSION: Patchy consolidation in the right lower lung, suggestive of pneumonia. Suggest follow-up imaging in 6-8 weeks to assess for resolution. Signed by: Dr. Edouard Aiken MD on 10/22/2018 12:23 PM
[2018-10-22 12:29] LABS: EPITHELIAL CELLS,URINE RARE /LPF; WBC,URINE (MAN) 0-5 /HPF (0-5)
[2018-10-22] MEDS ORDERED: AZITHROMYCIN 500MG/NS 250 ML 250 ML IV STA (12:55)
[2018-10-22] MEDS ORDERED: CEFTRIAXONE SOD 1 GM/NS 50 ML 50 ML IV ONE (13:00)
--- NOTE | 2018-10-22 14:04 | Diagnostic Imaging Report ---
EXAM: CT Chest WITH contrast - PE Protocol INDICATION: Chest pain, shortness of breath, query pulmonary embolism. COMPARISON: CT chest with contrast 08/24/2018. TECHNIQUE: Chest was scanned utilizing a multidetector helical scanner from the lung apex through the level of the adrenal glands after administration of IV contrast. Coronal and sagittal reformations were obtained. Pulmonary embolism protocol was performed. IV CONTRAST: 66 mL of Isovue-370. RADIATION DOSE: Total DLP: 469.2 mGy*cm Dose modulation, iterative reconstruction, and/or weight based adjustment of the mA/kV was utilized to reduce the radiation dose to as low as reasonably achievable. COMPLICATIONS: None FINDINGS: LINES/ TUBES: None. PULMONARY ARTERIES: The study is satisfactory for the evaluation of pulmonary embolism to the level of the segmental pulmonary arteries. The subsegmental pulmonary arteries are not well opacified. No evidence of pulmonary embolism. Calcified bilateral hilar lymph nodes result in moderate extrinsic compression of the bilateral proximal lobar pulmonary arteries. LUNGS AND AIRWAYS: The central airways are patent. There is consolidative opacity within the right middle lobe, increased from the prior CT. Consolidation enhances homogeneously. There is severe extrinsic narrowing of the right middle lobe central bronchus, which likely accounts for the lobar atelectasis. There is moderate extrinsic narrowing of additional bilateral central bronchi at the hilum. Again noted is linear opacity within left upper lobe adjacent to calcified left peribronchial lymph nodes. Linear subsegmental atelectasis in the left upper lobe. Subsegmental lingular atelectasis. Interval decrease in multifocal groundglass opacity, compared to the prior CT. There is patchy groundglass opacity in the left lower lobe on series 3, image 46. Small bilateral pulmonary nodules including a 3 mm subpleural nodule in the right upper lobe on this image 19, 2 mm subpleural nodule in the left upper lobe on image 15, and 4 mm groundglass nodule in the right upper lobe on image 56. PLEURA: The pleural spaces are clear. HEART AND MEDIASTINUM: Unchanged heterogeneous left thyroid lobe nodule. There are enlarged and calcified bilateral mediastinal and hilar lymph nodes, as before. Mild cardiomegaly. No pericardial effusion. There is coronary atherosclerosis. Scattered atherosclerotic calcifications within the thoracic aorta and branch vessels. Tortuous great vessels. UPPER ABDOMEN: Limited contrast-enhanced views of the upper abdomen. Status post cholecystectomy. Small hiatal hernia. BONES/SOFT TISSUES: No acute osseous abnormality. No suspicious lytic or blastic lesions. IMPRESSION: No evidence of pulmonary embolism to the level of the segmental pulmonary arteries. Enlarged bilateral calcified mediastinal hilar lymph nodes. Extrinsic compression, likely secondary to fibrosis in the bilateral diana, which result in moderate extrinsic narrowing of the bilateral lobar pulmonary arteries. There is severe extrinsic narrowing of the right middle lobe central bronchus, likely counting for the chronic appearing lobar consolidation. The findings are more suggestive of chronic atelectasis rather than pneumonia. The findings are likely secondary to chronic fibrosis related to prior granulomatous disease. Tiny bilateral pulmonary nodules as above. Follow chest CT may be considered in 12 months. Signed by: Dr. Edouard Aiken MD on 10/22/2018 2:01 PM
[2018-10-22 15:33] LABS: CREATINE KINASE MB 1.2 ng/mL (0-5.0)
[2018-10-22] MEDS ORDERED: SODIUM CHLORIDE 0.9% 50ML 50 ML ONE (15:52)
[2018-10-22] MEDS ORDERED: IOPAMIDOL 370 MG/ML 200 ML INFUS..BTL INJ ONE (15:52)
== END 2018-10-22 16:04 | disposition home or self-care (01) ==
LOC: ER 11:21
DX: R07.89 Other chest pain (principal); I10 Essential (primary) hypertension; J44.9 Chronic obstructive pulmonary disease, unspecified; E78.00 Pure hypercholesterolemia, unspecified; M19.90 Unspecified osteoarthritis, unspecified site; Z88.0 Allergy status to penicillin; R04.2 Hemoptysis
CPT/HCPCS: 36415; 71046; 71260; 80053; 81001; 82550; 82553; 83880; 84484; 85025; 85610; 85730; 87086; 93005; 99284; J0456; J0696; Q9967

== ENCOUNTER → 2019-04-02 | Outpatient (CLI) | payer MEDICARE ==
--- NOTE | 2019-04-02 16:08 | Diagnostic Imaging Report ---
Thyroid ultrasound CPT code: 17587 History: Thyromegaly Comparison: None Findings: The thyroid echotexture is normal. Vascularity is normal. The right lobe measures 3.9 x 1.3 x 1.8 cm. The left lobe measures 3.7 x 1.2 x 1.8 cm. The isthmus measures 0.3 cm. Nodules (measurements are AP, transverse, craniocaudal): Right Lobe: Interpolar 5 x 3 x 5 mm hyperechoic well-circumscribed nodule without internal calcification. Interpolar hypoechoic 3 mm nodule without internal calcification. Left Lobe: 2.7 x 1.8 x 1.7 cm hypoechoic part cystic part solid well-circumscribed wider than tall nodule without internal calcification. Isthmus: No cystic mass or discrete solid nodule identified. Lymph Nodes: No cervical lymph nodes are identified. Parathyroids: Not visualized. IMPRESSION: Left thyroid interpolar 2.7 x 1.8 x 1.7cm nodule is mildly suspicious (TIRADS3). Recommend FNA based on size >2.5cm. Right thyroid lobe nodules are not suspicious (TIRADS 2) ACR glossary of thyroid rads TI-RADS 1: No focal lesion. TI-RADS 2: Not suspicious. TI-RADS 3: Mildly suspicious (recommend FNA is greater than or equal to 2.5 cm; follow-up at 1, 3, and 5 years if greater than or equal to 1.5 cm) TI-RADS 4: Moderately Suspicious (recommend FNA is greater than or equal to 1.5 cm; follow-up at 1, 2, 3, and 5 years) TI-RADS 5: Highly suspicious (recommend FNA is greater than or equal to 10 mm) TI-RADS 6: Biopsy-proven malignancy Signed by: Cara Kelsey MD on 04/02/2019 4:04 PM
== END ==
LOC: US 15:25
PROVIDERS: ATTEND Internal Medicine Critical Care Medicine
DX: E01.0 Iodine-deficiency related diffuse (endemic) goiter (principal)
CPT/HCPCS: 76536

== ENCOUNTER → 2020-10-09 | Outpatient (CLI) | payer MEDICARE | LOC: RAD 09:19 | PROVIDERS: ATTEND Family Medicine | DX: R07.81 Pleurodynia (principal) | CPT/HCPCS: 71111 ==